=== PATIENT | male | born 1960 ===

== ENCOUNTER → 2023-12-01 06:26 | Day surgery (SDC) | payer OTHER, SELFPAY ==
[2023-12-01 07:05] LABS: Glucose - Point of Care 102 mg/dl (70-99)
== END ==
LOC: GI 06:26
PROVIDERS: ATTENDING PHYSICIAN Internal Medicine Gastroenterology; FAMILY PHYSICIAN Internal Medicine
DX: Z12.11 Encounter for screening for malignant neoplasm of colon (principal); K63.5 Polyp of colon; K56.2 Volvulus; K64.0 First degree hemorrhoids
CPT/HCPCS: 45380; 88305; 82962

== ENCOUNTER 2024-11-04 09:17 | Emergency (ER) | payer OTHER, SELFPAY ==
[2024-11-04 09:22] VITALS: BP 116/81
--- NOTE | 2024-11-04 09:53 | ED.GENMED ---
History of Present Illness
General
Chief Complaint: Male Genito-Urinary Symptoms
Source: patient and spouse
Time Seen by Provider: 11/04/24 09:43
History of Present Illness
History of Present Illness:
64-year-old male presents emergency department with complaints of lower abdominal discomfort that he noticed in the middle of the night when he went to use the restroom. He then had a easy bowel movement around 7 AM and noticed that the pain
continued. He urinated again at 8:30 AM and noted hematuria without clots. He continues to describe a mild 2 out of 10 abdominal discomfort mostly in the left lower quadrant area without radiation, exacerbating, relieving factors. He denies
associated dysuria, urgency, frequency, fever, chills, nausea, vomiting, upper abdominal pain, back pain, chest pain, dyspnea, or other complaints.
Past History
Past History
ED Past Medical History: Other (Type 2 diabetes, hypertension, hypercholesterolemia)
ED Past Surgical History: Cholecystectomy
Social History
Tobacco: Non-smoker
Alcohol: None
Drug: None
Personal:
Living: with family
Phy Exam
Physical Exam
Physical Exam:
GENERAL: Alert , in no apparent distress
EYE: pupils equal and reactive
NECK: Supple, no significant adenopathy.
ENT: o/p clr, mmm.
CARDIAC: Regular rate and rhythm .
LUNGS: Clear breath sounds bilaterally, no acute respiratory distress, no wheezes/rales/rhonchi
ABDOMEN: Soft, minimal left lower quad tenderness, no r/g, no cvat
NEUROLOGICAL: Alert and oriented, no focal neuro deficits
SKIN: Warm and dry, skin intact.
MUSCULOSKELETAL: No edema, well perfused.
PSYCH: Normal and appropriate interaction.
Course
Orders/Labs/Results
Orders:
Orders
11/04/24 09:52
0.9% Sodium Chloride 1000 ml [Nss] 1,000 ml IV BOLUS
11/04/24 09:53
CT Abd/pel Without Iv Or Oral Urgent
Comment:
Reason For Exam: l sided pain with hematuria
11/04/24 09:57
Complete Blood Count/No Diff Urgent
Comprehensive Metabolic Panel Urgent
Urinalysis Reflex To Culture Urgent
Date Specimen was Collected: 11/04/24
Time Specimen was Collected: 09:55
Urine Microscopic Reflex Cult Urgent
Urine Culture Urgent
XIMENA Source: U
Specimen Description:
Date Specimen was Collected: 11/04/24
Time Specimen was Collected: 09:55
11/04/24 11:35
Ketorolac [Toradol] 15 mg IV NOW STA
Abnormal Lab Results
11/04/24
09:57
Sodium 133 L mmol/L
(135-145)
Chloride 96 L mmol/L
(98-107)
Glucose 177 H mg/dl
(70-99)
Calcium 10.7 H mg/dl
(8.4-10.2)
Urine Ketones 2+ A
(Negative)
Ur Occult Blood Reflex 4+ A
(Negative)
Urine Nitrite (Reflex) Positive A
(Negative)
Leukocyte Esterase Rfl 1+ A
(Negative)
Urine RBC >100 A /HPF
(0-2)
Urine Bacteria (Reflex) Few A
(Negative)
Urine Yeast Moderate A
(Negative)
Urine Glucose 1+ A
(Negative)
Urine Albumin (Reflex) 3+ A
(Neg - Trace)
11/04/24 09:57
11/04/24 09:57
Vital Signs
Initial and Last Documented VS:
Initial Vital Signs
Temp Pulse Resp BP Pulse Ox
98.9 F 94 19 116/81 100
11/04/24 09:22 11/04/24 09:22 11/04/24 09:22 11/04/24 09:22 11/04/24 09:22
Last Documented Vital Signs
Temp Pulse Resp BP Pulse Ox
98.9 F 94 19 116/81 100
11/04/24 09:22 11/04/24 09:22 11/04/24 09:22 11/04/24 09:22 11/04/24 09:22
Update Note
Update Note:
Patient presents to the Emergency Department with __abdominal pain with hematuria
Number and Complexity of Problems Addressed at the Encounter
� Chronic conditions affecting care:
� Acute Exacerbation and/or Progression of Chronic Illness:
� Differential Diagnosis includes: But not limited to kidney stone, UTI, diverticulitis, etc. etc. etc.
Amount and/or Complexity of Data to be Reviewed and Analyzed
� I performed an independent evaluation of and my interpretation is:
EKG:
CT:8 mm stone mid ureter with hydro, otherweise nad, pt given copy of report
Xrays:
Laboratory Studies:gnerally unremkarable, mild hyperglycemia, blood/nitrite in urine, etc
Other:
� Review of other/old records reveals:
� Clinical information was obtained by an independent historian: who is bedside
� Prescriptions/Medications Considered but not given:
� Further testing considered but not performed:
Risk of Complications and/or Morbidity or Mortality of Patient Management
� Social determinants of health affecting care:
� Discussion with other providers (PCP, Hospitalists, Consultants, etc):
� Escalation of care including admission/observation vs risk of discharge considered: 9:55 AM patient declines pain medication at this time
11:37 AM Long discussion with patient and , given copy of CAT scan report, strainer, collection cup, aware of anticipated symptoms, reasons to return to the ER, and importance of close follow-up.
Case discussed with Dr. Alessandro SANDOVAL from urology, aware of case and will follow-up with patient promptly, aware of stone size, etc.
ED Attending Note
-
Portions of this chart may have been created with voice recognition software.� Occasional wrong word or��sound alike� substitutions may have occurred due to the inherent limitations of voice recognition software.
Discharge Plan
Departure
Patient Disposition: Home (Routine Discharge)
Date of Disposition: 11/04/24
Time of Disposition: 12:07
Patient with high blood pressure during this ER visit?: Yes
Condition: Good
Discharge Problem:
Kidney calculi
Instructions: Kidney stones in adults, How to Strain Your Urine, Kidney stone diet, BLOOD PRESSURE
Prescriptions:
New
ondansetron HCl 4 mg tablet
4 mg PO Q8H 1 Days Qty: 7 0RF
oxycodone-acetaminophen [Percocet] 5-325 mg tablet
1 tab PO Q4HPRN PRN (Reason: pain) Qty: 17 0RF
Referrals:
Jonnie Felton I., DO [Family Provider] -
Dayton Calhoun MD [Active] - Follow up in 2-3 days
Activity Restrictions/Additional Instructions:
IF YOU DEVELOP INCREASING/NEW/PERSISTENT PAIN, FEVER, VOMITING, DIFFICULTY URINATING, PAIN WITH URINATION OR OTHER WORRISOME SIGNS, GO TO THE ER IMMEDIATELY!
Interventions
Interventions:
*Risk Screen - Suicide Last Done: 11/04/24 09:22
*General Assessment Last Done: 11/04/24 09:22
*Neglect/Abuse Screening Last Done: 11/04/24 09:22
ED- Fall Risk Assessment Last Done: 11/04/24 11:07
*ED COVID-19 Vaccine History Last Done: 11/04/24 09:22
ED-Male Genitourinary Assessment Last Done: 11/04/24 09:53
Discharge Date and Time
Print Language: [id number]
[2024-11-04 10:03] VITALS: BMI 24.0
[2024-11-04] MEDS: NSS 1000 IV (10:04)
[2024-11-04 10:15] LABS: Hematocrit 40.8 % (39.0-52.0); Hemoglobin 13.9 g/dL (13.0-18.0); Mean Corp Hgb Conc. 34.1 g/dL (33.0-37.0); Mean Platelet Volume 9.2 fL (7.4-10.4); Platelet Count 218 10^3/uL (130-400); Red Cell Dist. Width 12.3 % (11.5-14.5); White Blood Cell Count 6.8 10^3/uL (4.8-10.8)
[2024-11-04 10:37] LABS: ALT (SGPT) 27 U/L (0-50); AST (SGOT) 25 U/L (17-59); Albumin 4.3 g/dl (3.5-5.0); Alkaline Phosphatase 112 U/L (38-126); Blood Urea Nitrogen 19 mg/dl (9-20); Calcium 10.7 mg/dl (8.4-10.2); Carbon Dioxide 28 mmol/L (22-30); Chloride 96 mmol/L (98-107); Estimated Creatinine Clearance 109 ml/min; Glucose 177 mg/dl (70-99); Potassium 4.8 mmol/L (3.5-5.1); Sodium 133 mmol/L (135-145); Total Protein 6.8 g/dl (6.3-8.2); eGFR > 60.00
[2024-11-04 10:45] LABS: Urine Albumin 3+ (Neg - Trace); Urine Bilirubin Negative (Negative); Urine Character Cloudy (Clear); Urine Color Red; Urine Glucose 1+ (Negative); Urine Ketone 2+ (Negative); Urine Leukocyte 1+ (Negative); Urine Nitrite Positive (Negative); Urine Occult Blood 4+ (Negative); Urine Urobilinogen Negative (Neg - 1+)
[2024-11-04 11:25] LABS: Urine Squamous Cell 0-2 /LPF (Few)
[2024-11-04 11:26] LABS: Urine Bacteria Few (Negative); Urine Red Blood Cell >100 /HPF (0-2); Urine Yeast Moderate (Negative)
[2024-11-04] MEDS: TORADOL 15 MG IV (11:45)
[2024-11-04 12:47] VITALS: BP 120/74
== END 2024-11-04 13:04 | disposition home or self-care (01) ==
LOC: EMR 09:17
PROVIDERS: EMERGENCY PHYSICIAN Emergency Medicine; FAMILY PHYSICIAN Internal Medicine
DX: N13.2 Hydronephrosis with renal and ureteral calculous obstruction (principal); I10 Essential (primary) hypertension
CPT/HCPCS: 99285; 96374; 96361; 74176; 80053; 81003; 81015; 85027; 87086

== ENCOUNTER → 2024-11-11 12:21 | Outpatient (REF) | payer OTHER, SELFPAY | LOC: RAD 12:21 | PROVIDERS: ATTENDING PHYSICIAN Urology; FAMILY PHYSICIAN Internal Medicine | DX: N20.0 Calculus of kidney (principal) | CPT/HCPCS: 74018 ==

== ENCOUNTER 2024-11-26 06:08 | Day surgery (SDC) | payer OTHER, SELFPAY ==
[2024-11-26] VITALS (8 sets, daily range): BP systolic 101–117; BP diastolic 62–73; BMI 22.4
[2024-11-26 07:44] LABS: Glucose - Point of Care 82 mg/dl (70-99)
[2024-11-26] MEDS: NORMOSOL-R/PLASMALYTE-A 1000 IV (07:55)
[2024-11-26 09:46] LABS: Glucose - Point of Care 47 mg/dl (70-99)
[2024-11-26 10:19] LABS: Glucose - Point of Care 81 mg/dl (70-99)
[2024-11-26] MEDS: Pyridium 200 MG PO (10:36)
== END 2024-11-26 11:26 | disposition home or self-care (01) ==
LOC: SDS 06:08
PROVIDERS: ATTENDING PHYSICIAN Urology
DX: N20.1 Calculus of ureter (principal)
CPT/HCPCS: 50590; 74018; 76000; 82365; 82962; 93005; A4300; C1769